=== PATIENT | female | born 1970 | race Caucasian/White ===

== ENCOUNTER 2021-07-03 21:23 | Emergency (ER) | payer MEDICAID ==
[2021-07-03] MEDS ORDERED: Diphtheria,Pertussis(Acell),Tetanus Vaccine 0.5 ML Syringe IM ONE (22:10)
--- NOTE | 2021-07-03 22:14 | EDM.PDOC ---
ED HPI GENERAL MEDICAL PROBLEM - General Chief Complaint: Laceration Stated Complaint: FALL, HEAD INJURY Time Seen by Provider: 07/03/21 21:30 Source of Information: Reports: Patient - History of Present Illness INITIAL COMMENTS - FREE TEXT/NARRATIVE: 51-year-old lady came to the emergency department after suffering a fall at home. She was walking up the stairs from the basement and the cat ran under her feet and she fell backwards. Not sure how she hit her head but she did have immediate pain and bleeding on the right side of her scalp above her ear. She also landed on her right shoulder and suffered pain in her right shoulder. Her past medical history is significant for multiple sclerosis and surgery to repair a biceps tendon on the right arm/shoulder little more than a year ago. She did not lose consciousness. She does not have any other complaints including fever, chills, flulike symptoms, chest pain, shortness of breath, change in bowel or bladder habits. 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 Neurological History: Reports: MS - Infectious Disease History Infectious Disease History: Reports: Chicken Pox - Past Surgical History GI Surgical History: Reports: Cholecystectomy Other Musculoskeletal Surgeries/Procedures:: L SHOULDER REPAIR ED ROS GENERAL - Review of Systems Review Of Systems: See Below Constitutional: Reports: No Symptoms HEENT: Reports: No Symptoms Respiratory: Reports: No Symptoms Cardiovascular: Reports: No Symptoms Endocrine: Reports: No Symptoms GI/Abdominal: Reports: No Symptoms : Reports: No Symptoms Musculoskeletal: Reports: No Symptoms Skin: Reports: Wound Neurological: Reports: Weakness, Gait Disturbance, Other (Multiple sclerosis) Psychiatric: Reports: No Symptoms Hematologic/Lymphatic: Reports: No Symptoms Immunologic: Reports: No Symptoms ED EXAM, GENERAL - Physical Exam Exam: See Below Exam Limited By: No Limitations General Appearance: Alert, WD/WN, No Apparent Distress Eye Exam: Bilateral Eye: EOMI Head: Other (There is a V-shaped laceration approximately 2 cm x 3 cm right parietal region no bleeding or discharge at this time, there is swelling and erythemaedema) Neck: Normal Inspection, Full Range of Motion Cardiovascular: Regular Rate, Rhythm Back Exam: Normal Inspection Extremities: Normal Inspection, Other (Range of motion testing of the right shoulder shows restriction in abduction and flexion but the patient states that this is normal post her surgery last year. There is some swelling, erythema, ecchymosis on the posterior superior aspect of the right shoulder.) Neurological: Alert, Oriented, CN II-XII Intact, Normal Cognition, Other (Proprioception intact in the bilateral upper and lower extremities, pronator drift test is negative) Psychiatric: Normal Affect, Normal Mood Skin Exam: Other (Laceration on the head looks to be more of an avulsion in a shape of a "V", as described above) ED GENERAL MEDICAL PROCEDURES - Laceration/Wound Repair Right Head Lac/wound length in cm: 4 ("V" shaped likely avulsion) Appearance: Subcutaneous Anesthetic Type: Other (No anesthesia used) Skin Prep: Chlorhexidine (Hibiciens), Other (Tap water) Exploration/Debridement/Repair: Wound Explored, In a Bloodless Field, Explored to Base, Minimal Debridement Closed with: Huang Suture Size: Other (35 R) # of Sutures: 8 (Butler) Course - Vital Signs Text/Narrative:: The laceration/avulsion on the head was thoroughly rinsed with tap water and cleaned with water and Hibiclens. There was minimal debris likely just skin from the head. The wound was not bleeding at the time of cleaning and there was only minimal bleeding with cleaning. Significant attempts were made to remove hair from the V-shaped wound/likely avulsion. 8 huang were applied to each side of the V-shaped laceration/avulsion. There was no bleeding or discharge following the procedure. Patient tolerated the procedure well. Note that I discussed further imaging with the patient including imaging of the right shoulder and of the head. Patient declined imaging at this time. Departure - Departure Time of Disposition: 22:25 Disposition: Home, Self-Care 01 Condition: Good Clinical Impression: Fall (on)(from) incline, initial encounter, Avulsion of scalp, initial encounter, Contusion - Discharge Information *PRESCRIPTION DRUG MONITORING PROGRAM REVIEWED*: Not Applicable *COPY OF PRESCRIPTION DRUG MONITORING REPORT IN PATIENT KIARRA: Not Applicable Instructions: Fall Prevention in the Home, Adult, [id number], Contusion, [id number], Sutures, Butler, or Adhesive Wound Closure, [id number], Deep Skin Avulsion Referrals: Sameer Mcclelland MD [Physician] - Forms: ED Department Discharge Additional Instructions: Patient instructed to wait approximately 24 to 48 hours before washing her hair/cleaning the wound. She was advised to wash and clean very easily. I tried to explain the difference between an avulsion and an abrasion. Discussed signs and symptoms of wound infection and signs and symptoms of head injury. I advised the patient to come back to the emergency department or go to the clinic immediately if she has fever, chills, bleeding, discharge, swelling, erythema, change in mental status, dizziness, headache, photophobia, change in ability to walk/perform daily living functions.
[2021-07-03 23:06] VITALS: BP 135/88; PULSE 80
== END 2021-07-03 23:45 | disposition home or self-care (01) ==
LOC: FB.ED 21:23
DX: S01.01XA Laceration without foreign body of scalp, initial encounter (principal); S40.011A Contusion of right shoulder, initial encounter; Z88.1 Allergy status to other antibiotic agents; Z23 Encounter for immunization; W10.2XXA Fall (on)(from) incline, initial encounter; Y92.009 Unspecified place in unspecified non-institutional (private) residence as the place of occurrence of the external cause
CPT/HCPCS: 12002; 70450; 90471; 90715; 99283-25

== ENCOUNTER 2021-10-11 07:31 | Day surgery (SDC) | payer MEDICAID ==
[~2021-10-11 07:31] MED LIST: Lactated Ringers 1,000 ML IV SCH; Sodium Chloride 0.9% 10 ML Syringe FLUSH PRN
[2021-10-11] MEDS ORDERED: Propofol 200 MG/20 ML SDV IV ONE (07:32)
[2021-10-11] MEDS ORDERED: Lidocaine 2% 5 ML SDV INJECT ONE (07:32)
[2021-10-11] MEDS ORDERED: Glycopyrrolate 0.2 MG/ML 5 ML MDV IV ONE (07:32)
[2021-10-11 12:27] VITALS: PULSE 63
[2021-10-11 12:28] VITALS: BP 127/76
== END 2021-10-11 09:45 | disposition home or self-care (01) ==
LOC: FB.SDS 07:31
PROVIDERS: ATTEND Surgery
DX: K29.40 Chronic atrophic gastritis without bleeding (principal); G35 Multiple sclerosis; E66.9 Obesity, unspecified; Z79.1 Long term (current) use of non-steroidal anti-inflammatories (NSAID); Z88.8 Allergy status to other drugs, medicaments and biological substances; Z79.899 Other long term (current) drug therapy; Z98.890 Other specified postprocedural states; Z87.891 Personal history of nicotine dependence; Z68.31 Body mass index [BMI] 31.0-31.9, adult
CPT/HCPCS: 00731; 43239; 88305; 88342; J2704; J3490; J7120

== ENCOUNTER 2022-05-05 22:21 | Emergency (ER) | payer MEDICAID ==
[2022-05-05] MEDS ORDERED: Lidocaine 2% with EPINEPHrine 1:100,000 20 ML MDV INFILT ONE (22:22)
[2022-05-05] MEDS: Acetaminophen 500 MG Tab PO ONE (23:04)
[2022-05-05] MEDS: Bacitracin Oint 1 GM U/D Packet TOP ONE (23:41)
[2022-05-06 02:42] VITALS: PULSE 105
[2022-05-06 03:05] VITALS: BP 129/85
== END 2022-05-05 23:55 | disposition home or self-care (01) ==
LOC: FB.ED 22:21
DX: S01.01XA Laceration without foreign body of scalp, initial encounter (principal); E66.9 Obesity, unspecified; Z68.30 Body mass index [BMI] 30.0-30.9, adult; Z88.1 Allergy status to other antibiotic agents; Z79.899 Other long term (current) drug therapy; W01.10XA Fall on same level from slipping, tripping and stumbling with subsequent striking against unspecified object, initial encounter
CPT/HCPCS: 12002; 99283; A9270-GY

== ENCOUNTER 2023-05-26 07:47 | Day surgery (SDC) | payer MEDICAID, OTHER ==
[2023-05-26] MEDS ORDERED: Propofol 200 MG/20 ML SDV IV ONE (07:48)
[2023-05-26] MEDS ORDERED: Lidocaine 2% 5 ML SDV IV ONE (07:48)
[2023-05-26] MEDS ORDERED: Simethicone Drops 40 MG/0.6 ML 30 ML Bottle ONE (09:10)
[2023-05-26 11:02] VITALS: BP 124/74; PULSE 57
== END 2023-05-26 10:48 | disposition home or self-care (01) ==
LOC: FB.SDS 07:47
PROVIDERS: ATTEND Surgery
DX: D12.0 Benign neoplasm of cecum (principal); K62.1 Rectal polyp; K57.30 Diverticulosis of large intestine without perforation or abscess without bleeding; H00.15 Chalazion left lower eyelid; L03.114 Cellulitis of left upper limb; K21.9 Gastro-esophageal reflux disease without esophagitis; F32.A Depression, unspecified; Z79.899 Other long term (current) drug therapy; Z91.048 Other nonmedicinal substance allergy status
CPT/HCPCS: 00811; 88305; A9270-GY; J2704; J7120